=== PATIENT | male | born 1950 | race Caucasian/White ===

== ENCOUNTER 2022-09-21 09:04 | Day surgery (SDC) | payer OTHER, SELFPAY ==
--- NOTE | 2022-09-21 | PATH_ITS ---
[facility] Accession Number: [id number] No. of containers..01 Tissue . 01 Material submitted: . sigmoid colon - SIGMOID POLYP . 01 Diagnosis: Sigmoid Colon, Polyp, Biopsy: Hyperplastic polyp. MRV 09/27/2022 1348 Local . 01 Electronically signed: . Narcisa Crooks MD, Pathologist NPI- [id number] . 01 Gross description: . SIGMOID POLYP: Received in formalin is 1 fragment(s) of alberto, soft tissue measuring 0.3 x 0.2 x 0.1 cm submitted entirely in 1 cassette(s) /CPE 09/22/2022 0849 Local . 01 Pathologist provided ICD-10: K63.5 . 01 CPT . 446047 Specimen Comment: A courtesy copy of this report has been sent to [phone] Performed at: 01 [facility] [address] [place] [address], [place], [place] [id number] MD Pablo Gongora MD Phone: [phone]
[2022-09-21] MEDS: LACTATED RINGERS 1,000 ML 42 ML IV (09:22)
[2022-09-21 09:37] VITALS: BP 133/82; PULSE 92; RESP 16; TEMP 37.1; O2SAT 100; BMI 21.4
--- NOTE | 2022-09-21 10:33 | PM.HP.1 ---
History of Present Illness History of Present Illness Date Patient Seen: 09/21/22 Time Patient Seen: 10:33 Chief complaint: Colonoscopy Narrative: The patient presents for colorectal screening. Previously normal colonoscopy 10 years ago. No personal or family history of colon cancer. On further history denies any recent gastrointestinal symptoms. No nausea, vomiting, abdominal pain, loss of appetite, unexplained weight loss, change in bowel habits, or blood per rectum. Patient History Family & Social History Social History: household members spouse Tobacco & Substance use: Smoking Status Never smoker alcohol intake current alcohol intake frequency a few times a week Substance Use Type does not use Meds Home Medications and Allergies Allergies Allergy/AdvReac Type Severity Reaction Status Date / Time No Known Drug Allergies Allergy Verified 09/21/22 09:29 Exam Vital Signs (past 8 hours): - 09/21/22 09:37 Temperature 98.8 F Pulse Rate 92 H Respiratory Rate 16 Blood Pressure 133/82 Pulse Oximetry 100 Oxygen Delivery Method Room Air Oxygen Delivery Method Room Air Narrative Exam Narrative: General adult male alert oriented no acute distress Abdomen soft nontender nondistended Assessment & Plan Assessment & Plan narrative: The patient requires colorectal screening and colonoscopy is recommended. Technical details were discussed. Risks, benefits, alternatives explained. Risks including but not limited to myocardial infarction, aspiration, bleeding, pain, missed lesion, incomplete examination, need for further radiographic studies, colonic perforation, and need for major abdominal surgery were discussed. All questions were answered to their satisfaction, and they are in agreement with this plan. Time Spent With Patient Critical Care time: I spent a total of [] minutes of critical care time on this patient's care today; this time is exclusive of procedural time.
--- NOTE | 2022-09-21 10:35 | PM.OP.COLON ---
Operative Date/Time/Diagnoses Date of procedure: 09/21/22 Time of procedure: 10:35 Pre-op diagnosis: Colorectal screening Post-op diagnosis: same Procedure & Clinicians Study performed: Colonoscopy Same procedure as scheduled: Yes Indications: Colorectal screening Surgeon: Juan Antonio Briceño Procedure Notes Procedure in detail: The history and physical was performed/updated and the patient is ASA class is 1. The procedure was discussed in detail with the patient. Potential risks complications including infection, bleeding, missed diagnosis, perforation, need for surgery, and were explained. Their questions were answered and informed consent was obtained. Patient was brought to the procedure room and placed standard monitoring equipment. The patient's vital signs were monitored continuously throughout the entire procedure. Prior to starting time-out was performed. The patient was placed in the left lateral recumbent position. Procedural sedation was administered by anesthesia. Examination began with a thorough inspection of the perianal area there was no evidence of fissures, fistulae, external hemorrhoids or cutaneous malignancy. The colonoscopy scope was then placed into the anal canal and was advanced to the cecum, which was identified by the ileocecal valve, the appendiceal orifice and the confluence of the taenia. The scope was then slowly withdrawn examining colon thoroughly in all directions, irrigating it of any residual stool. FINDINGS 1. Sigmoid polyp 5 mm removed with biopsy forceps 2. No masses. 3. Internal hemorrhoids The patient tolerated the procedure well. They will be discharged once criteria are met. The prep was of good/excellent quality. The withdrawl time was 8 minutes. Specimen(s): other (Sigmoid polyp) Complications: none Post-procedure Recommendations: Colonoscopy in 10 years and High fiber diet Disposition: same day surgery
[2022-09-21 11:04] VITALS: BP 120/89; PULSE 83; RESP 12; TEMP 36.2; O2SAT 95
[2022-09-21 11:09] VITALS: BP 110/84; PULSE 75; RESP 23; O2SAT 96
[2022-09-21 11:13] VITALS: BP 109/76; PULSE 77; RESP 12; O2SAT 98
[2022-09-21 11:18] VITALS: BP 129/90; PULSE 78; RESP 15; TEMP 36.3; O2SAT 99
--- NOTE | 2022-09-21 11:29 | SUR.PHASEII ---
1130: Pt A&Ox4, denies any distress, and ready to discharge home. Discharge instructions reviewed with pt with time allowed for questions. IV DC'd intact, abd soft. Pt left unit with all personal belongings via w/c to ER entrance where spouse will transport pt home.
== END 2022-09-21 11:42 | disposition home or self-care (01) ==
PROVIDERS: Family Provider Family Medicine; PCP Physician Assistant; Referring Provider Surgery; Visit Provider Surgery
PROC: 0DJD8ZZ Inspection of Lower Intestinal Tract, Via Natural or Artificial Opening Endoscopic (ICD-10-PCS; CPT 45378; principal; 2022-09-21 10:15)
DX: Z12.11 Encounter for screening for malignant neoplasm of colon (principal); K63.5 Polyp of colon; K64.8 Other hemorrhoids
CPT/HCPCS: 45380; J2704